=== PATIENT | female | born 1965 | race Caucasian/White ===

== ENCOUNTER → 2016-06-14 | Outpatient (CLI) | payer OTHER | END | disposition home or self-care (01) | LOC: MAMMO 09:45 | PROVIDERS: ATTEND Internal Medicine | DX: Z12.31 Encounter for screening mammogram for malignant neoplasm of breast (principal) | CPT/HCPCS: 77063; G0202; 77067 ==

== ENCOUNTER → 2017-11-22 | Outpatient (CLI) | payer OTHER ==
--- NOTE | 2017-11-25 08:37 | RAD ---
DATE: 11/22/2017 EXAM: MAMMO RONNIE SCREENING BILATERAL HISTORY: Benign bilateral breast biopsies. No current relevant symptoms. COMPARISON: 06/14/2016, 04/28/2015 screen mammograms This study was interpreted with the benefit of Computerized Aided Detection (CAD ). Breast Density: SCATTERED The breast parenchyma shows scattered fibroglandular densities. Breast parenchyma level B. FINDINGS: Biopsy clip marker involves the posterior left lower central breast. Additional biopsy clip markers are present involving the outer upper right breast. Parenchymal distribution is stable. No suspicious calcifications. No masses or distortion. IMPRESSION: BI-RADS CATEGORY: 2 BENIGN FINDING(S) RECOMMENDED FOLLOW-UP: PQRS compliance statement: Patient information was entered into a reminder system with a target due date in 1 year for the next mammogram. Mammography is a sensitive method for finding small breast cancers, but it does not detect them all and is not a substitute for careful clinical examination. A negative mammogram does not negate a clinically suspicious finding and should not result in delay in biopsying a clinically suspicious abnormality. "Our facility is accredited by the [employer] Mammography [employer]." JOLENED
== END | disposition home or self-care (01) ==
LOC: MAMMO 09:21
PROVIDERS: ATTEND Internal Medicine
DX: Z12.31 Encounter for screening mammogram for malignant neoplasm of breast (principal)
CPT/HCPCS: 77063; 77067

== ENCOUNTER → 2018-12-02 | Outpatient (CLI) | payer OTHER ==
--- NOTE | 2018-12-03 09:05 | RAD ---
DATE: 12/03/2018 EXAM: MAMMO RONNIE SCREENING BILATERAL HISTORY: Asymptomatic screening mammogram. History of benign bilateral breast biopsies. COMPARISON: 11/22/2017, 06/14/2016 and 04/28/2015 This study was interpreted with the benefit of Computerized Aided Detection (CAD). Breast Density: SCATTERED The breast parenchyma shows scattered fibroglandular densities. Breast parenchyma level B. FINDINGS: Bilateral CC and MLO views of the breasts were performed. Bilateral breast tomosynthesis was performed in CC and MLO projections. Right breast: There are no suspicious microcalcifications, masses or areas of architectural distortion. Left breast: There is increased size of a mass in the medial lower left breast at anterior depth, approximately 1.5 cm from the nipple. Further evaluation with spot compression CC and MLO views as well as possible ultrasound is recommended. IMPRESSION: 1. Incomplete left mammogram. Additional views are recommended. 2. Negative right mammogram. BI-RADS CATEGORY: 0 INCOMPLETE: NEEDS ADDITIONAL IMAGING EVALUATION AND/OR PRIOR MAMMOGRAMS FOR COMPARISON. RECOMMENDED FOLLOW-UP: ADD ADDITIONAL IMAGING PQRS compliance statement: Mammography is a sensitive method for finding small breast cancers, but it does not detect them all and is not a substitute for careful clinical examination. A negative mammogram does not negate a clinically suspicious finding and should not result in delay in biopsying a clinically suspicious abnormality. "Our facility is accredited by the [employer] Mammography [employer]."
== END | disposition home or self-care (01) ==
LOC: MAMMO 13:25
PROVIDERS: ATTEND Internal Medicine
DX: Z12.31 Encounter for screening mammogram for malignant neoplasm of breast (principal)
CPT/HCPCS: 77063; 77067

== ENCOUNTER → 2018-12-12 | Outpatient (CLI) | payer OTHER ==
--- NOTE | 2018-12-12 14:05 | RAD ---
DATE: 12/12/2018 EXAM: DIGITAL DIAGNOSTIC LT, BREAST LEFT HISTORY: Abnormal mammogram COMPARISON: 11/14/2018 screen mammogram This study was interpreted with the benefit of Computerized Aided Detection (CAD). Breast Density: SCATTERED The breast parenchyma shows scattered fibroglandular densities. Breast parenchyma level B. FINDINGS: Spot compression imaging in the CC and MLO projections demonstrate persistence of a mass lesion involving the left breast anteriorly. Ultrasound imaging of the left breast demonstrates a well-circumscribed complex cyst measuring 0.3 cm x 0.2 cm x 0.2 cm at the 9:00 region. IMPRESSION: Probably benign BI-RADS CATEGORY: 3 PROBABLY BENIGN FINDING(S)-SHORT INTERVAL FOLLOW-UP SUGGESTED RECOMMENDED FOLLOW-UP: 6M 6 MONTH FOLLOW-UP. Six-month follow-up mammographic exam is recommended to assess stability. Ultrasound may be needed at that time. PQRS compliance statement: Patient information was entered into a reminder system with a target due date for the next mammogram. Mammography is a sensitive method for finding small breast cancers, but it does not detect them all and is not a substitute for careful clinical examination. A negative mammogram does not negate a clinically suspicious finding and should not result in delay in biopsying a clinically suspicious abnormality. "Our facility is accredited by the [employer] Mammography Program."
== END | disposition home or self-care (01) ==
LOC: MAMMO 12:57
PROVIDERS: ATTEND Internal Medicine
DX: N60.02 Solitary cyst of left breast (principal)
CPT/HCPCS: 76641; 77065

== ENCOUNTER → 2019-07-14 | Outpatient (CLI) | payer OTHER ==
--- NOTE | 2019-07-14 13:56 | RAD ---
EXAMINATION: MAMMO RONNIE DIAG LT, BREAST LEFT, 07/14/2019 12:00 AM CLINICAL INDICATION: Six-month follow-up of left breast cyst. COMPARISON: Left breast diagnostic mammogram and ultrasound 12/12/2018 MAMMOGRAPHIC FINDINGS: Digital full field CC and MLO, and tomosynthesis views of the left breast. The left breast contains scattered areas of fibroglandular density. The small circumscribed mass in the medial left breast containing a tiny calcification is unchanged. No new mass or suspicious calcification. SONOGRAPHIC FINDINGS: Focused ultrasound of the left breast was performed at 9:00 3 cm from the nipple. The ovoid circumscribed hypoechoic mass with a few internal echoes is unchanged. The mass is parallel in orientation and measures 3 mm in diameter. IMPRESSION: 1. Unchanged probable clustered microcysts in the medial left breast at 9:00. 2. BI-RADS 3-probably benign. 3. Left breast diagnostic mammogram and ultrasound is recommended in 6 months. The patient will receive a reminder letter by mail when she is due for her next exam. Electronically signed by: Elaina Navas MD (07/14/2019 1:53 PM) [id number]
== END | disposition home or self-care (01) ==
LOC: MAMMO 12:57
PROVIDERS: ATTEND Internal Medicine
DX: Z09 Encounter for follow-up examination after completed treatment for conditions other than malignant neoplasm (principal); N60.02 Solitary cyst of left breast
CPT/HCPCS: 76641; 77065; G0279; 77061

== ENCOUNTER → 2019-12-28 | Outpatient (CLI) | payer OTHER ==
--- NOTE | 2019-12-28 15:15 | RAD ---
EXAM: Bilateral diagnostic mammogram; left breast sonogram. HISTORY: 54-year-old female presents for 6 month follow-up evaluation of a suspected benign lesion within the left breast demonstrated on a sonogram dated 07/14/2019. TECHNIQUE: Full-field digital craniocaudal and mediolateral oblique views of both breasts are obtained for evaluation. Computer aided detection with [facility] software version 9.3 was applied. COMPARISON: Sonogram and mammogram dated 07/14/2019 and mammograms dated 12/12/2018, 12/02/2018, 11/22/2017 and 06/14/2016. BREAST PARENCHYMAL DENSITY: Level B - Scattered fibroglandular densities. FINDINGS: There is no new suspicious mass, microcalcification or region of architectural distortion. There is stable areas of nodularity within both breasts, allowing for differences in imaging technique. There are a few benign calcifications. There are biopsy clips within both breasts. Sonographic imaging of the left breast demonstrates a stable 3.3 mm hypoechoic lesion with internal echoes at the 9:00 position 3 cm from the nipple. There is a vessel coursing adjacent to this lesion. However, no clear solid enhancing lesion component is seen. There is no new suspicious sonographic lesion in this location. IMPRESSION: 1. Stable 3.3 mm benign complicated cystic or fibrocystic lesion within the 9:00 position of the left breast. 2. No new suspicious mammographic or sonographic finding. 3. BI-RADS Category 2: Benign finding(s). RECOMMENDATION: Annual mammography is recommended. If your mammogram demonstrates that you have dense breast tissue, which could hide abnormalities, and if you have other risk factors for breast cancer that have been identified, you might benefit from supplemental screening tests that may be suggested by your ordering physician. Dense breast tissue, in and of itself, is a relatively common condition. This information is not provided to cause undue concern, but rather to raise your awareness and to promote discussion with your physician regarding the presence of other risk factors, in addition to dense breast tissue. A report of your mammography results will be sent to you and your physician. You should contact your physician if you have any questions or concerns regarding this report. Mammography is a sensitive method for finding small breast cancers, but it does not detect them all and is not a substitute for careful clinical examination. A negative mammogram does not negate a clinically suspicious finding and should not result in delay in biopsying a clinically suspicious abnormality. PQRS compliance statement - Patient information was entered into a reminder system with a target due date for the next mammogram. "Our facility is accredited by the [employer] Mammography [employer]." Electronically signed by: Rhoda Marie MD (12/28/2019 3:12 PM) [id number]
== END ==
LOC: MAMMO 14:16
PROVIDERS: ATTEND Family Medicine
DX: R92.2 Inconclusive mammogram (principal)
CPT/HCPCS: 76641; 77066; G0279; 77062